=== PATIENT | male | born 1960 | race Caucasian/White ===

== ENCOUNTER 2016-09-14 08:20 | Emergency (ER) | payer BC, OTHER ==
[2016-09-14 09:02] VITALS: BP 147/98
--- NOTE | 2016-09-14 10:24 | UC ---
Back Pain HPI - HPI Summary HPI Summary: 56 yo male c/o chronic low back pain and pain shooting down legs, paty right leg , extending to lateral foot. Sx have been present for many years, but recently has worsened and become unmanageable. Original injury occurred at work several years ago, details / date unclear; but he is being followed for this and general health care by the [place] for primary care, and is being treated for pain by Pauly Hutchinson NP. He reports that he has a referral to pain specialist in [place], but appointment still pending. Recently seen by pcp 09/01/16, rx for norco 5/325 # 60, last of which he completed this am. Requests script for norco 10/325. No b/b leak. No recent illness, no cough / cp / palpitations. He reports that his last day of scheduled work is this Monday. - History of Current Complaint Chief Complaint: UCBackPain Stated Complaint: BACK INJURY W/C Time Seen by Provider: 09/14/16 08:49 Hx Obtained From: Patient Pain Intensity: 9 Pain Scale Used: 0-10 Numeric - Allergies/Home Medications Allergies/Adverse Reactions: Allergies Allergy/AdvReac Type Severity Reaction Status Date / Time Gabapentin Allergy Heartburn Verified 09/14/16 08:55 Home Medications: Home Medications Cholecalciferol TAB* [Vitamin D TAB*] 4,000 units PO DAILY 09/14/16 [History Confirmed 09/14/16] Diclofenac 1% GEL (NF) [Voltaren 1% GEL (NF)] 4 gra TOPICAL Q6H PRN 09/14/16 [ History Confirmed 09/14/16] HYDROcodone/ACETAMIN 5-325 MG* [[place] 5-325 TAB*] 1 tab PO BID PRN 09/14/16 [ History Confirmed 09/14/16] Lisinopril TAB* [Prinivil TAB*] 10 mg PO DAILY 09/14/16 [History Confirmed 09/14] Methocarbamol TAB* [Robaxin 500 MG TAB*] 500 mg PO Q6H PRN 09/14/16 [History Confirmed 09/14/16] Simvastatin TAB(NF) [Zocor(NF)] 10 mg PO DAILY 09/14/16 [History Confirmed 09/14] traZODone TAB* [Desyrel TAB*] 75 mg PO BEDTIME 09/14/16 [History Confirmed 09/14] PMH/Surg Hx/FS Hx/Imm Hx Previously Healthy: No - see hpi - Surgical History Surgical History: Yes Surgery Procedure, Year, and Place: L5 S1 Laminectomy, 1997, [place]; Appendectomy, 1980, [place]; Right Ear Cholesteatoma, ~1999, [place]; Right Mastoidectomy, 2004, [place]; Deviated Septum, ~1987, [place]; Left Thumb Pins, 1981, [place]; Umbilical Herniorrhaphy, ~2002, [facility] - Social History Alcohol Use: 2 beers/daily Substance Use Type: Prescribed Smoking Status (MU): Heavy Every Day Tobacco Smoker Type: Cigarettes, Smokeless Tobacco Amount Used/How Often: 2 1/2 cans per day Length of Time of Smoking/Using Tobacco: 1/2 PPD x 10 Years (quit ~2011); chew since then Have You Smoked in the Last Year: Yes Review of Systems Constitutional: Fatigue - pain Skin: Negative Eyes: Negative ENT: Negative Respiratory: Negative Cardiovascular: Negative Gastrointestinal: Negative Genitourinary: Negative Motor: Decreased ROM - see hpi Neurovascular: Other - see hpi Musculoskeletal: Other: - see hpi Neurological: Other - see hpi Psychological: Negative - no report All Other Systems Reviewed And Are Negative: Yes Physical Exam Triage Information Reviewed: Yes Appearance: No Pain Distress - sitting up in chair, looks uncomfortable, Well- Nourished Vital Signs: Initial Vital Signs Temp 98.3 F 09/14/16 08:33 Pulse 76 09/14/16 08:33 Resp 16 09/14/16 08:33 BP 147/98 09/14/16 08:33 Pulse Ox 100 09/14/16 08:33 Vital Signs Reviewed: Yes Eye Exam: Normal - grossly normal ENT Exam: Normal - focused exam not done, grossly normal Neck exam: Normal - no issues reported at this time, but a little straight ( suspect 2/2 chronic back pain) Respiratory Exam: Normal Respiratory: Positive: Chest non-tender, Lungs clear, Normal breath sounds, No respiratory distress Cardiovascular Exam: Normal Cardiovascular: Positive: RRR, No Murmur, Pulses Normal, Brisk Capillary Refill Abdominal Exam: Normal Abdomen Description: Positive: Nontender Musculoskeletal Exam: Other - lower mid back scar at site of previous lumbar surgery. back a little straight, c/w chronic pain sx. C/o pain radiating down right lat foot, tender R post buttock. Neurological Exam: Other - see m/s Psychological Exam: Normal - conversing easily and appropriately Skin Exam: Normal Back Pain Course/Dx - Course Course Of Treatment: I reviewed [employer] [place] [facility], no reports (c[facility]w [facility]). ref # [id number]. I spoke with Pauly Hutchinson NP ([facility]) via telephone approx 09: 00am. Mr. Resendez has scripts for voltaren cream, methocarbamol. Most recent script 09/01/16 # 60 norco 5/325, po bid prn pain. [facility], re-evaluate pain treatment. D/w Mr. Resendez who expressed understanding and ability and gratitude to go to this appointment. As such, pain medication script not written, pain medications not dispensed from here. Questions as posed answered to the best of my ability. - Differential Dx/Diagnosis Provider Diagnoses: Acute on chronic low back pain with sciatica / radicular sx. Discharge - Discharge Plan Condition: Stable Disposition: HOME Patient Education Materials: Sciatica (ED), Low Back Strain (ED) Referrals: Pauly Martin [Primary Care Provider] - Additional Instructions: Please see Pauly Hutchinson at the [place] office today - appointment is scheduled for 13:15 Seek medical attention for worse or new problems in the meantime.
== END 2016-09-14 09:21 | disposition home or self-care (01) ==
LOC: UCCORT 08:20
DX: M54.41 Lumbago with sciatica, right side (principal); G89.29 Other chronic pain; F17.220 Nicotine dependence, chewing tobacco, uncomplicated
CPT/HCPCS: 99213; G0463

== ENCOUNTER 2018-03-25 12:50 | Emergency (ER) | payer OTHER ==
[2018-03-25 13:54] VITALS: BP 138/89
--- NOTE | 2018-03-25 14:05 | ED ---
Skin Complaint - HPI Summary HPI Summary: painful rash on the back and chest for the last several days. says bitten by something almost a week ago, but today noted rash that spread from back to chest - History of Current Complaint Chief Complaint: UCSkin Time Seen by Provider: 03/25/18 13:54 Stated Complaint: SKIN CONCERN/BACK PAIN Hx Obtained From: Patient Onset/Duration: Started Hours Ago Skin Exposure Onset/Duration: Hours Ago Timing: Lasting Hours Onset Severity: Moderate Current Severity: Moderate Pain Intensity: 8 Character: Pain, Redness, Raised Aggravating Symptom(s): Nothing Alleviating Symptom(s): Nothing - Allergy/Home Medications Allergies/Adverse Reactions: Allergies Allergy/AdvReac Type Severity Reaction Status Date / Time gabapentin AdvReac Heartburn Verified 03/25/18 13:48 Home Medications: Home Medications Hydrocodone/Acetaminophen [Hydrocodone/Acetaminophen 10-325 mg] 1 tab PO BID PRN 03/25/18 [History Confirmed 03/25/18] Lidocaine 4% GEL* [Topicaine 4% GEL*] 1 applic TOPICAL SEE INSTRUCTIONS PRN [History Confirmed 03/25/18] PMH/Surg Hx/FS Hx/Imm Hx Previously Healthy: No - hx. of hypertension, hypercholesterolemia, chronic low back pain Cardiovascular History: Reports: Hx Hypertension - Surgical History Surgery Procedure, Year, and Place: L5 S1 Laminectomy, 1997, [place]; Appendectomy, 1980, [place]; Right Ear Cholesteatoma, ~1999, [place]; Right Mastoidectomy, 2004, [place]; Deviated Septum, ~1987, [place]; Left Thumb Pins, 1981, [place]; Umbilical Herniorrhaphy, ~2002, [facility] Infectious Disease History: No Infectious Disease History: Denies: Traveled Outside the [place] in Last 30 Days - Social History Alcohol Use: 2 beers daily Substance Use Type: Reports: Marijuana, Prescribed Substance Use Comment - Amount & Last Used: Daily (Medical) Smoking Status (MU): Heavy Every Day Tobacco Smoker Type: Cigarettes, Smokeless Tobacco Amount Used/How Often: 1 can per week Length of Time of Smoking/Using Tobacco: 1/2 PPD x 10 Years (quit ~2011); chew since then Have You Smoked in the Last Year: Yes Review of Systems Constitutional: Negative Eyes: Negative ENT: Negative Cardiovascular: Negative Respiratory: Negative Gastrointestinal: Negative Genitourinary: Negative Skin: Other - red raised blistering rash back and chest All Other Systems Reviewed And Are Negative: Yes Physical Exam Triage Information Reviewed: Yes Vital Signs On Initial Exam: Initial Vitals Temp Pulse Resp BP Pulse Ox 37.1 C 86 18 138/89 100 03/25/18 13:45 03/25/18 13:45 03/25/18 13:45 03/25/18 13:45 03/25/18 13:45 Vital Signs Reviewed: Yes Appearance: Positive: Ill-Appearing Skin: Positive: Warm, Other - vesicular rash in a t 6 dermatome on the right Head/Face: Positive: Normal Head/Face Inspection Eyes: Positive: Normal ENT: Positive: Normal ENT inspection Neck: Positive: Supple Respiratory/Lung Sounds: Positive: Clear to Auscultation Cardiovascular: Positive: Normal Abdomen Description: Positive: Nontender Diagnostics - Vital Signs Vital Signs Temp Pulse Resp BP Pulse Ox 03/25/18 13:45 37.1 C 86 18 138/89 100 - Laboratory Lab Statement: Any lab studies that have been ordered have been reviewed, and results considered in the medical decision making process. Course/Dx - Diagnoses Provider Diagnoses: Shingles Discharge - Sign-Out/Discharge Documenting (check all that apply): Patient Departure All imaging exams completed and their final reports reviewed: No - Discharge Plan Condition: Fair Disposition: HOME Prescriptions: ValACYclovir (*) [Valtrex 1 GM(*)] 1 gm PO TID 7 Days #21 tab Referrals: Pauly Martin [Primary Care Provider] - - Billing Disposition and Condition Condition: FAIR Disposition: Home
--- NOTE | 2018-03-26 20:00 | UC ---
Course/Dx - Diagnoses Provider Diagnoses: Shinglkandice Discharge - Sign-Out/Discharge Documenting (check all that apply): Patient Departure All imaging exams completed and their final reports reviewed: No Studies - Discharge Plan Condition: Fair Disposition: HOME Prescriptions: ValACYclovir (*) [Valtrex 1 GM(*)] 1 gm PO TID 7 Days #21 tab Patient Education Materials: [place] (ED) Referrals: Pauly Martin [Primary Care Provider] - - Billing Disposition and Condition Condition: FAIR Disposition: Home
== END 2018-03-25 14:10 | disposition home or self-care (01) ==
LOC: UCCORT 12:50
DX: B02.9 Zoster without complications (principal); I10 Essential (primary) hypertension; M54.9 Dorsalgia, unspecified; F17.210 Nicotine dependence, cigarettes, uncomplicated; G89.29 Other chronic pain; Z79.891 Long term (current) use of opiate analgesic; Z88.8 Allergy status to other drugs, medicaments and biological substances
CPT/HCPCS: 99212; G0463